=== PATIENT | female | born 1950 | race Caucasian/White ===

== ENCOUNTER → 2018-04-20 | Outpatient (CLI) | payer OTHER ==
[~2018-04-20] MED LIST: WELLBUTRIN SR150 MG PO; ZANTAC 150MG T150 MG PO
== END ==
LOC: CAT 12:10
DX: Z13.6 Encounter for screening for cardiovascular disorders (principal); E78.00 Pure hypercholesterolemia, unspecified

== ENCOUNTER → 2018-12-19 | Outpatient (CLI) | payer BC, OTHER | LOC: ULTRA 13:47 | DX: M71.22 Synovial cyst of popliteal space [Baker], left knee (principal) ==